=== PATIENT | female | born 1970 | race Caucasian/White ===

== ENCOUNTER 2024-08-28 11:54 | Outpatient (CLI) | payer SELFPAY ==
--- NOTE | 2024-08-28 12:12 | XR_ITS ---
WS: [id number] Cervical spine, 3 views, 08/28/2024 Clinical Data: chronic neck pain, previous surgery Comparison: None. Findings: No compression fractures are seen. There is an anterior cervical disc fusion C4-C7 with fusion of the intervening disc spaces. There is osteoarthritic spurring of the anterior inferior aspects of C2 and C3. No prevertebral soft tissue swelling is seen. The odontoid is normal. The AP view of the neck and lung apices show no abnormalities. XR/XR cervical spine 3V* [id number] Impression: 1. Anterior cervical disc fusion C4-C7. 2. Osteoarthritis of C2 and C3.
--- NOTE | 2024-08-28 12:13 | XR_ITS ---
WS: [id number] Lumbar spine, AP and lateral views, 08/28/2024 Clinical Data: chronic lumbar pain Comparison: None. Findings: No compression fractures or subluxation is seen. There is disc narrowing at L3- L4. There are anterior osteophytes at all lumbar levels. There is a gentle dextroscoliosis. The transverse processes and SI joints are normal. XR/XR lumbar spine 2-3V* [id number] Impression: 1. Degenerative disc narrowing at L3-L4. 2. Osteoarthritis and dextroscoliosis.
== END 2024-08-28 11:55 | disposition home or self-care (01) ==
DX: M54.2 Cervicalgia (principal); G89.29 Other chronic pain; M51.360 Other intervertebral disc degeneration, lumbar region with discogenic back pain only; M25.78 Osteophyte, vertebrae; M41.86 Other forms of scoliosis, lumbar region; M43.22 Fusion of spine, cervical region
CPT/HCPCS: 72040; 72100